=== PATIENT | male | born 1980 | race Caucasian/White ===

== ENCOUNTER 2017-05-28 22:40 | Emergency (ER) | payer SELFPAY ==
[~2017-05-28] VITALS: Ht 190.5 cm; Wt 133.0 kg
[2017-05-28 22:50] VITALS: BP 158/89
[2017-05-29] MEDS ORDERED: BACITRACIN TOP OINT 1 UD PKG TOP ONE (01:30)
[2017-05-29] MEDS ORDERED: LIDOCAINE 1% HCL (LOCAL ANESTH.) INJ 20ML MDV IJ ONE (01:30)
[2017-05-29] MEDS ORDERED: TETANUS IMMUNE GLOBULIN 250 UNIT/ML SYRG IM ONE (01:45)
[2017-05-29] MEDS ORDERED: TETANUS-DIPTH-ACEL PERTUSSIS 0.5ML SYRG IM ONE (01:45)
== END 2017-05-29 02:16 | disposition home or self-care (01) ==
LOC: ER 22:48
DX: S61.512A Laceration without foreign body of left wrist, initial encounter (principal); F17.210 Nicotine dependence, cigarettes, uncomplicated; E66.9 Obesity, unspecified; Z68.36 Body mass index [BMI] 36.0-36.9, adult; W26.0XXA Contact with knife, initial encounter; Y93.89 Activity, other specified; Y99.8 Other external cause status; Y92.89 Other specified places as the place of occurrence of the external cause
CPT/HCPCS: 12002; 99283; J2001